=== PATIENT | male | born 1955 | race Caucasian/White ===

== ENCOUNTER 2024-09-09 15:02 | Outpatient (CLI) | payer MEDICARE, SELFPAY ==
[2024-09-09 18:58] LABS: Basophils Absolute Auto 0.1 K/mm3 (0.0-0.1); Basophils Percent Auto 0.6 % (0.2-1.2); Eosinophils Absolute Auto 0.2 K/mm3 (0-0.3); Eosinophils Percent Auto 1.9 % (0-4.4); Hematocrit 43.5 % (42.0-52.0); Hemoglobin 14.1 g/dL (14.0-18.0); Immature Granulocyte Absolute 0.04 K/mm3 (0.00-0.031); Immature Granulocyte Percent A 0.4 % (0-0.5); Lymphocytes Percent Auto 21.3 % (18.3-44.2); Mean Corpuscular HGB Conc 32.4 g/dl (32-36); Mean Corpuscular Volume 92.6 fl (80-100); Mean Platelet Volume 11.6 fl (7.4-10.4); Monocytes Absolute Auto 0.9 K/mm3 (0.1-0.6); Monocytes Percent Auto 8.8 % (2.6-8.5); Neutrophils Absolute Auto 6.6 K/mm3 (1.3-6.7); Platelet Count Result 212 k/mm3 (150-375); Red Cell Distribution Width 12.4 % (11.5-14.5); White Blood Count 9.8 K/mm3 (4.5-10.0)
[2024-09-09 19:43] LABS: Alanine Aminotransferase 43 U/L (6-50); Albumin Level 4.4 g/dL (3.5-5.1); Alkaline Phosphatase 92 U/L (38-126); Anion Gap 10 mmol/L (4-12); Aspartate Amino Transferase 52 U/L (17-59); Bilirubin,Total 0.6 mg/dL (0.2-1.3); Blood Urea Nitrogen 27 mg/dL (9-20); Calcium 9.3 mg/dL (8.4-10.2); Carbon Dioxide 27 mmol/L (22-30); Chloride 101 mmol/L (98-107); Cholesterol 121 mg/dL (0-200); Estimated Glomerular Filt Rate 47; Glucose 106 mg/dL (65-110); HDL Direct 40 mg/dL; Potassium 4.5 mmol/L (3.4-5.0); Sodium 138 mmol/L (137-145); Triglycerides 63 mg/dL (<150)
[2024-09-09 19:54] LABS: LDL Cholesterol Direct 53 mg/dL
[2024-09-09 20:16] LABS: Prostate Specific Antigen 0.4 ng/mL (< OR = 4.0)
[2024-09-09 20:20] LABS: Hemoglobin A1C 6.3 % (<5.7)
== END 2024-09-09 15:03 | disposition home or self-care (01) ==
LOC: ANHGOSHLAB 15:03
PROVIDERS: PCP Clinical Nurse Specialist; Visit Provider Clinical Nurse Specialist
DX: Z12.5 Encounter for screening for malignant neoplasm of prostate (principal); E78.5 Hyperlipidemia, unspecified; I10 Essential (primary) hypertension; I25.10 Atherosclerotic heart disease of native coronary artery without angina pectoris; R73.01 Impaired fasting glucose
CPT/HCPCS: 36415; 80053; 80061; 83036; 84153; 84443; 85025; G0103

== ENCOUNTER 2024-10-07 09:04 | Outpatient (CLI) | payer MEDICARE, SELFPAY ==
[2024-10-07 20:14] LABS: Anion Gap 9 mmol/L (4-12); Blood Urea Nitrogen 22 mg/dL (9-20); Calcium 9.2 mg/dL (8.4-10.2); Carbon Dioxide 29 mmol/L (22-30); Chloride 101 mmol/L (98-107); Estimated Glomerular Filt Rate 55; Glucose 97 mg/dL (65-110); Potassium 4.2 mmol/L (3.4-5.0); Sodium 139 mmol/L (137-145)
== END 2024-10-07 09:05 | disposition home or self-care (01) ==
PROVIDERS: PCP Clinical Nurse Specialist; Visit Provider Clinical Nurse Specialist
DX: R94.4 Abnormal results of kidney function studies (principal)
CPT/HCPCS: 36415; 80048

== ENCOUNTER 2024-12-29 09:14 | Outpatient (CLI) | payer MEDICARE, SELFPAY ==
--- OUTSIDE RECORDS SUMMARY | 2024-12-29 09:32 | XMS_ITS | Patient Health Record ---
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 Name Role Phone SLICK SINGH DO Primary Care Provider Shira GrahamObed josue Unavailable [phone] Allergies No Known Allergies Results Component Value Reference Range Flag Notes Echo Complete [id number] Reviewed date:09/16/2024 04:02:09 PM Interpretation: Performing Lab: Notes/Report: Echo Complete EC-[id number] (Not yet reviewed by provider) Interpretation: Performing Lab: Notes/Report: [id number] Echo Complete [id number] (Not yet reviewed by provider) Interpretation: Performing Lab: Notes/Report: Cardiopulmonary Services Name: ADALID BARRETO Study Date: 10/19/2024 : 1955 Patient Location: [facility] Age: 69 yrs Gender: Male Height: 71 in Weight: 200 lb HR: 69 BSA: 2.1 m2 Reason For Study: CAD<Cardiomyopathy Interpretation Summary There is mild concentric left ventricular hypertrophy. Left Ventricular Function is estimated to be 40-45%. There is moderate mitral regurgitation. There is mild tricuspid regurgitation. Mild aortic regurgitation. Recommendations Continue present medication. Will continue to follow regularly. Left Ventricle The left ventricle is normal in size. There is mild concentric left ventricular hypertrophy. Left Ventricular Function is estimated to be 40-45%. Right Ventricle The right ventricle is grossly normal size. Atria The left atrial size is normal. Right atrial size is normal. Great Vessels The aortic root is normal size. Mildly dilated ascending aorta. Pericardium/Pleural There is no pericardial effusion. There is no pleural effusion. Mitral Valve There is moderate mitral regurgitation. Aortic Valve Mild aortic regurgitation. Tricuspid Valve There is mild tricuspid regurgitation. Pulmonic Valve Mild pulmonic valvular regurgitation. MMode/2D Measurements & Calculations IVSd: 1.2 cm LVIDd: 4.7 cm FS: 27.8 % LVIDs: 3.4 cm EDV(Teich): 101.7 ml LVPWd: 1.3 cm ESV(Teich): 46.9 ml EF(Teich): 53.9 % EPSS: 1.1 cm Ao root diam: 3.7 cm asc Aorta Diam: 3.9 cm Ao root area: 10.8 cm2 ACS: 1.7 cm LA dimension: 3.3 cm LVOT diam: 2.1 cm LVOT area: 3.5 cm2 Time Measurements Aortic HR: 69.6 BPM MM HR: 69.4 BPM Pulm. R-R: 0.94 sec Pulm. HR: 63.5 BPM Doppler Measurements & Calculations MV E max louis: 86.7 cm/sec MV V2 max: 102.2 cm/sec MV dec slope: MV A max louis: MV max P.2 mmHg 484.1 cm/sec2 109.6 cm/sec MV V2 mean: 67.6 cm/sec MV dec time: 0.18 sec MV E/A: 0.79 MV mean P.0 mmHg MV V2 VTI: 25.3 cm MVA(VTI): 2.8 cm2 Ao V2 max: 145.7 cm/sec AI max louis: 390.3 cm/sec LV V1 max P.5 mmHg Ao max P.5 mmHg AI max P.9 mmHg LV V1 mean P.1 mmHg Ao V2 mean: 93.9 cm/sec AI dec slope: LV V1 max: 94.2 cm/sec Ao mean P.2 mmHg 240.2 cm/sec2 LV V1 mean: 68.5 cm/sec Ao V2 VTI: 24.4 cm AI P1/2t: 475.8 msec LV V1 VTI: 19.9 cm JARED(I,D): 2.9 cm2 JARED(V,D): 2.3 cm2 MR max louis: 450.0 cm/sec CO(LVOT): 4.8 l/min PA V2 max: 101.9 cm/sec MR max P.0 mmHg SV(LVOT): 69.5 ml PA max P.2 mmHg PA V2 mean: 71.4 cm/sec PA mean P.3 mmHg PA V2 VTI: 24.0 cm PI end-d louis: TR max louis: 197.2 cm/sec RAP systole: 10.0 mmHg 112.9 cm/sec TR max P.6 mmHg RVSP(TR): 25.6 mmHg Ordering Physician: Obed Rodgers Referring Physician: Obed Rodgers Performed By: Lucia Leblanc Prothrombin Time 70859 (Not yet reviewed by provider) Interpretation: Performing Lab: Notes/Report: ProTime 11.5 9.1-11.9 SEC Normal Range : 9.1-11.9 INR 1.09 .90-1.20 Therapeutic Range: 2.0-3.0 Therapaeutic Range for heart valve replacement: 2.5-3.50 Comprehensive Metabolic Pane l (CMP) 54563 (Not yet reviewed by provider) Interpretation: Performing Lab: Notes/Report: Glucose Serum 158 71-110 MG/DL HI Testing p erformed at [facility], [address] [place] [address] [place] [address]. CLIA ID#: [id number] BUN 22 7-21 MG/DL HI Creat 1.28 .57-1.17 MG/DL HI P-ametha-w-benzoquinon e imine (NAPQI) is a metabolite of acetaminophen, NAPQI concentrations of apparoximately 10 mg/L correlation to toxic levels of acetaminophen demonstrates a greater than or equil to 10% change in results. NAPQI concentrations greater than this may lead to falsely depressed results for patient samples. Use of this assay is not recommended for patients undergoing treatment with phenindione, due to the potential for falsely depressed results. GFR 61.5 NA Calculation pe rformed from GFR calculator provided by the National Kid[employer]. Glomerular Filtration rate(GRF) is the best overall index of kidney function. Normal GFR varies according to age,sex, body size, and declines with age. The National Kidney Foundation recommends using the CKD-EPI Creatinine Equation(2020) to estimate GFR. BUN/Creat Ratio 17.2 12.0-20.0 % Total Protein 7.4 5.8-8.0 G/DL Albumin 4.4 3.2-4.8 G/DL Globulin 3.0 2.3-3.5 G/DL Alb/Glob 1.5 0.8-2.2 Calcium 9.5 8.7-10.4 MG/DL Sodium 140 136-145 MMOL/L Potassium 3.9 3.5-5.1 MMOL/L Chloride 104 98-107 MMOL/L CO2 27.8 20.0-31.0 MMOL/L Anion Gap 12 5-15 Alk Phos 91 46-116 Bili Total .4 .3-1.2 MG/DL Use of this assay is not recommended for patients undergoing treatment with eltrombopag due to the potential for falsely elevated results. AST/SGOT 23 15-37 UNIT/L ALT/SGPT 17 12-78 UNIT/L Osmo Serum,Calculated 297 280-300 MOSM/KG Partial Thromboplastin Time 39124 (Not yet reviewed by provider) Interpretation: Performing Lab: Notes/Report: PTT 23.6 22.6-31.8 SEC Therapeutic Range: 60-100. Critical Value Starting at > 100. Troponin-I 30582 (Not yet re viewed by provider) Interpretation: Performing Lab: Notes/Report: Troponin-I 316 2-54 pg/mL CRIT Results called to floor CATH, to Russ Trejo RN, @ 08/11/2024 17:23 RBV/CS CBC Reflex Man Diff 32369, 8 5007 (Not yet reviewed by provider) Interpretation: Performing Lab: Notes/Report: WBC 14.2 4.5-11.0 X10'3 HI RBC 4.63 4.50-5.90 X10'6 Hgb 14.2 13.5-17.5 G/DL Hct 42.4 41.0-53.0 % MCV 91.6 80.0-100.0 FL MCH 30.7 27.0-31.0 PG MCHC 33.5 31.0-37.0 G/DL Platelet 250 150-400 X10'3 RDW-SD 42.3 35.0-49.0 FL RDW-CV 12.7 12.2-15.6 % MPV 11.0 9.2-12.0 FL Review Auto Diff Conf Glucometer WBG--46693 (Not y et reviewed by provider) Interpretation: Performing Lab: Notes/Report: Glucometer WBG 134 65-110 MG/DL HI Notify D r~Meter: [id number]~Funeral Director/Embalmer: [id number] TITI COBB WBC Auto Diff--49228 (Not ye t reviewed by provider) Interpretation: Performing Lab: Notes/Report: Added by Discern Rules Neutro Auto% 80.5 40.0-70.0 % HI Lymph Auto% 13.1 22.0-44.0 % LOW Cloud Auto% 4.9 3.0-7.0 % Eos Auto% .3 2.0-4.0 % LOW Baso Auto% 0.6 0.0-1.0 % NRBC% .00 .00-.20 /100 intact WBC's Neutro Abs 11.44 .80-7.70 HI Absolute Neutrophil Count 46196 NA Lymph Abs 1.86 .10-4.10 Cloud Abs .69 .20-1.00 Eos Abs .04 .00-.40 Baso Abs .08 .00-.20 NRBC# .00 .00-.20 Imm Gran Abs .08 .00-.10 Imm Gran% .6 .0-.4 % HI Basic Metabolic Panel (BMP) 13047 (Not yet reviewed by provider) Interpretation: Performing Lab: Notes/Report: Sodium 136 136-145 MMOL/L Potassium 4.8 3.5-5.1 MMOL/L Chloride 104 98-107 MMOL/L CO2 26.0 20.0-31.0 MMOL/L Glucose Serum 169 71-110 MG/DL HI Testing p erformed at [facility], [address] [place] [address] [place] [address]. CLIA ID#: [id number] BUN 20 7-21 MG/DL Creat 1.12 .57-1.17 MG/DL O-qgaztw-o-benzoquinon e imine (NAPQI) is a metabolite of acetaminophen, NAPQI concentrations of apparoximately 10 mg/L correlation to toxic levels of acetaminophen demonstrates a greater than or equil to 10% change in results. NAPQI concentrations greater than this may lead to falsely depressed results for patient samples. Use of this assay is not recommended for patients undergoing treatment with phenindione, due to the potential for falsely depressed results. GFR 71.7 NA Calculation pe rformed from GFR calculator provided by the National Kidney Foundation. Glomerular Filtration rate(GRF) is the best overall index of kidney function. Normal GFR varies according to age,sex, body size, and declines with age. The National Kidney Foundation recommends using the CKD-EPI Creatinine Equation(202) to estimate GFR. Anion Gap 11 5-15 BUN/Creat Ratio 17.9 12.0-20.0 % Calcium 8.8 8.7-10.4 MG/DL Osmo Serum,Calculated 288 280-300 MOSM/KG Lipid Panel Reflex DLDL 8006 1, 93165 (Not yet reviewed by provider) Interpretation: Performing Lab: Notes/Report: Trig 123 NA Classification Guidelines:Triglyceride s Adults: >20yrs Desirable <150 Borderline High 150-199 High 200-499 Very high >=500 Children: Male 0-4 yr 22-99 5-9 yr 30-101 10-14 yr 32-125 15-19 yr 37-148 Children: Female 0-4 yr 34-112 5-9 yr 32-105 10-14 yr 37-131 15-19 yr 39-132 Chol 165 <=200 MG/DL HDL 46 30-72 MG/DL Reference Ranges:HDL Male: 5-9y 38-75 10-14y 37-74 15-19y 30-63 >=20y 40-59 Female: 5-9y 36-73 10-14y 37-70 15-19y 35-74 >=20y 40-59 CH/HDL 3.6 0.0-4.9 RATIO LDL 94 0-130 MG/DL LDL result is inaccurate , if Trig is >400 mg/dl. See DLDL result. Chest 1V (Not yet reviewed b y provider) Interpretation: Performing Lab: Notes/Report: See Below For Report Chest 1V Read See Below For Report zzzHeart Cath Lt poss PTCA ( Not yet reviewed by provider) Interpretation: Performing Lab: Notes/Report: [email or web address]=[id number]=iSite Schedule Confirmation (Not y et reviewed by provider) Interpretation: Performing Lab: Notes/Report: Heart Cath Lt poss PTCA Troponin-I 03976 (Not yet re viewed by provider) Interpretation: Performing Lab: Notes/Report: Troponin-I >491694 2-54 pg/mL CRIT CALLED TO Netta COPE RN @ [facility]. 08/11/2024 21:08:28 , RBV - ROYAL. Schedule Confirmation (Not y et reviewed by provider) Interpretation: Performing Lab: Notes/Report: Heart Cath Lt poss PTCA zzzHeart Cath Lt poss PTCA ( Not yet reviewed by provider) Interpretation: Performing Lab: Notes/Report: See Below For Report This report was dictated outside of the [employer] system. Read See Below For Report Troponin-I 32051 (Not yet re viewed by provider) Interpretation: Performing Lab: Notes/Report: Troponin-I >042654 2-54 pg/mL CRIT CALLED TO Tatum HUANG RN @ [facility]. 08/12/2024 03:35:41 , RBV - SRAY. CBC Reflex Man Diff 72754, 8 5007 (Not yet reviewed by provider) Interpretation: Performing Lab: Notes/Report: WBC 12.8 4.5-11.0 X10'3 HI RBC 4.65 4.50-5.90 X10'6 Hgb 14.2 13.5-17.5 G/DL Hct 42.5 41.0-53.0 % MCV 91.4 80.0-100.0 FL MCH 30.5 27.0-31.0 PG MCHC 33.4 31.0-37.0 G/DL Platelet 230 150-400 X10'3 RDW-SD 43.3 35.0-49.0 FL RDW-CV 13.1 12.2-15.6 % MPV 11.3 9.2-12.0 FL Review Auto Diff Conf Echo Complete EC-[id number] (Not yet reviewed by provider) Interpretation: Performing Lab: Notes/Report: [id number] CBC w\o Diff 21287 Reviewed date:08/22/2024 09:12:21 AM Interpretation: Performing Lab: Notes/Report: WBC 16.2 4.5-11.0 X10'3 HI RBC 4.75 4.50-5.90 X10'6 Hgb 14.2 13.5-17.5 G/DL Hct 44.2 41.0-53.0 % MCV 93.1 80.0-100.0 FL MCH 29.9 27.0-31.0 PG MCHC 32.1 31.0-37.0 G/DL Platelet 214 150-400 X10'3 RDW-SD 44.8 35.0-49.0 FL RDW-CV 13.2 12.2-15.6 % MPV 11.7 9.2-12.0 FL Basic Metabolic Panel (BMP) 62137 Reviewed date:08/22/2024 09:12:21 AM Interpretation: Performing Lab: Notes/Report: Sodium 137 136-145 MMOL/L Potassium 4.1 3.5-5.1 MMOL/L Chloride 101 98-107 MMOL/L CO2 27.4 20.0-31.0 MMOL/L Glucose Serum 130 71-110 MG/DL HI Testing p erformed at [facility], [address] [place] [address] [place] [address]. CLIA ID#: [id number] BUN 21 7-21 MG/DL Creat 1.09 .57-1.17 MG/DL O-hzzppe-l-benzoquinon e imine (NAPQI) is a metabolite of acetaminophen, NAPQI concentrations of apparoximately 10 mg/L correlation to toxic levels of acetaminophen demonstrates a greater than or equil to 10% change in results. NAPQI concentrations greater than this may lead to falsely depressed results for patient samples. Use of this assay is not recommended for patients undergoing treatment with phenindione, due to the potential for falsely depressed results. GFR 74.5 NA Calculation pe rformed from GFR calculator provided by the National Kidney Foundation. Glomerular Filtration rate(GRF) is the best overall index of kidney function. Normal GFR varies according to age,sex, body size, and declines with age. The National Kidney Foundation recommends using the CKD-EPI Creatinine Equation(2020) to estimate GFR. Anion Gap 13 5-15 BUN/Creat Ratio 19.3 12.0-20.0 % Calcium 9.4 8.7-10.4 MG/DL Osmo Serum,Calculated 289 280-300 MOSM/KG Basic Metabolic Panel (BMP) 80644 Reviewed date:08/22/2024 09:12:26 AM Interpretation: Performing Lab: Notes/Report: Sodium 137 136-145 MMOL/L Potassium 3.6 3.5-5.1 MMOL/L Chloride 104 98-107 MMOL/L CO2 27.4 20.0-31.0 MMOL/L Glucose Serum 105 71-110 MG/DL Testing p erformed at [facility], [address] [place] [address] [place] [address]. CLIA ID#: [id number] BUN 21 7-21 MG/DL Creat 1.09 .57-1.17 MG/DL I-zunczv-e-benzoquinon e imine (NAPQI) is a metabolite of acetaminophen, NAPQI concentrations of apparoximately 10 mg/L correlation to toxic levels of acetaminophen demonstrates a greater than or equil to 10% change in results. NAPQI concentrations greater than this may lead to falsely depressed results for patient samples. Use of this assay is not recommended for patients undergoing treatment with phenindione, due to the potential for falsely depressed results. GFR 74.2 NA Calculation pe rformed from GFR calculator provided by the National Kidney Foundation. Glomerular Filtration rate(GRF) is the best overall index of kidney function. Normal GFR varies according to age,sex, body size, and declines with age. The National Kidney Foundation recommends using the CKD-EPI Creatinine Equation(2020) to estimate GFR. Anion Gap 9 5-15 BUN/Creat Ratio 19.3 12.0-20.0 % Calcium 9.5 8.7-10.4 MG/DL Osmo Serum,Calculated 287 280-300 MOSM/KG Echo Complete EC-[id number] (Not yet reviewed by provider) Interpretation: Performing Lab: Notes/Report: Cardiopulmonary Services Name: ADALID BARRETO Study Date: 08/12/2024 : 1955 Patient Location: [facility] Age: 69 yrs Gender: Male Height: 71 in Weight: 200 lb BP: 152/105 mmHg BSA: 2.1 m2 Reason For Study: acute DE Interpretation Summary Left Ventricular Function is estimated to be 30-35%. There are regional wall motion abnormalities as specified. The left atrium is mildly dilated. There is moderate mitral regurgitation. There is mild tricuspid regurgitation. Mild aortic regurgitation. Mild pulmonic valvular regurgitation. Moderate ischemic cardiomyopathy. The left ventricle is borderline dilated. Left Ventricle The left ventricle is borderline dilated. Left Ventricular Function is estimated to be 30-35%. Moderate ischemic cardiomyopathy. There are regional wall motion abnormalities as specified. There is hypokinesis of the apical wall. There is hypokensis of the anterior wall. Right Ventricle The right ventricle is normal size. Atria The left atrium is mildly dilated. The right atrium is mildly dilated. Great Vessels The aortic root is normal size. Mitral Valve There is moderate mitral regurgitation. Aortic Valve Mild aortic regurgitation. Tricuspid Valve There is mild tricuspid regurgitation. Pulmonic Valve Mild pulmonic valvular regurgitation. MMode/2D Measurements & Calculations IVSd: 2.4 cm LVIDd: 4.3 cm FS: 35.7 % LVIDs: 2.8 cm EDV(Teich): 82.9 ml LVPWd: 1.4 cm ESV(Teich): 28.6 ml EF(Teich): 65.5 % Ao root diam: 4.1 cm asc Aorta Diam: 3.5 cm LVOT diam: 2.3 cm Ao root area: 13.1 cm2 LVOT area: 4.3 cm2 ACS: 2.1 cm LA dimension: 3.3 cm LVLd ap4: 7.4 cm SV(MOD-sp4): 25.6 ml RA A4Cs_phl: 17.3 cm2 EDV(MOD-sp4): 68.9 ml LVLs ap4: 7.0 cm ESV(MOD-sp4): 43.3 ml EF(MOD-sp4): 37.2 % Doppler Measurements & Calculations MV E max louis: 92.2 cm/sec MV V2 max: 119.8 cm/sec MV dec slope: 1007 cm/sec2 MV A max louis: 87.7 cm/sec MV max P.7 mmHg MV dec time: 0.09 sec MV E/A: 1.1 MV V2 mean: 70.8 cm/sec MV mean P.4 mmHg MV V2 VTI: 24.7 cm MVA(VTI): 2.6 cm2 Ao V2 max: 147.8 cm/sec LV V1 max P.2 mmHg SV(LVOT): 65.2 ml Ao max P.7 mmHg LV V1 mean P.5 mmHg Ao V2 mean: 92.6 cm/sec LV V1 max: 73.5 cm/sec Ao mean P.1 mmHg LV V1 mean: 58.7 cm/sec Ao V2 VTI: 32.9 cm LV V1 VTI: 15.1 cm JARED(I,D): 2.0 cm2 JARED(V,D): 2.1 cm2 TV V2 max: 54.1 cm/sec PA V2 max: 89.8 cm/sec AV VR_phl: 0.50 TV max P.2 mmHg PA max P.3 mmHg JARED(VTI)/BSA_phl: 0.99 MV P1/2t-pr_phl: 26.8 msec Ordering Physician: Obed Rodgers Referring Physician: Obed Rodgers Performed By: Carie Robbins WBC Auto Diff--50813 (Not ye t reviewed by provider) Interpretation: Performing Lab: Notes/Report: Added by Discern Rules Neutro Auto% 82.0 40.0-70.0 % HI Lymph Auto% 10.2 22.0-44.0 % LOW Cloud Auto% 6.9 3.0-7.0 % Eos Auto% .1 2.0-4.0 % LOW Baso Auto% 0.3 0.0-1.0 % NRBC% .00 .00-.20 /100 intact WBC's Neutro Abs 10.52 .80-7.70 HI Absolute Neutrophil Count 73098 NA Lymph Abs 1.31 .10-4.10 Cloud Abs .88 .20-1.00 Eos Abs .01 .00-.40 Baso Abs .04 .00-.20 NRBC# .00 .00-.20 Imm Gran Abs .07 .00-.10 Imm Gran% .5 .0-.4 % HI Reason For Referral No Information Medications Medication SIG (Take, Route, Frequency, Duration) Notes Start Date End Date Status Atorvastatin Calcium 40 MG Tablet 1 tablet Orally Once a day; Duration: 90 days Active Brilinta 90 MG Tablet 1 tablet Orally Twice a day; Duration: 30 days please dispense generic Active Aspirin 81 MG Tablet Delayed Release 1 tablet Orally Once a day Active Ticagrelor 90 MG Tablet 1 tablet Orally Twice a day; Duration: 30 days 12/07/2024 Active Lasix 20 MG Tablet 1 tablet EVERY OTHER DAY Orally Once a day; Duration: 30 days Active Carvedilol 6.25 MG Tablet 1/2 tablet with food Orally Twice a day; Duration: 30 days Active Farxiga 10 MG Tablet 1 tablet Orally Once a day; Duration: 30 days Active Entresto 24-26 MG Tablet 1/2 tablet Orally Twice a day; Duration: 30 days Active Social History Tobacco Use: Social History Observation Description Date Details (start date - stop date) Never Smoker NA - NA Social History Drugs/Alcohol: Social Info Question Answer Notes Drugs Have you used drugs other than those for medical reasons in the past 12 months? No Caffeine Intake: 2-3 cups per day Tobacco Use: Social Info Question Answer Notes Tobacco Control (Standard) Tobacco use: Nonsmoker Additional Details Category Social Info Options Details Drugs/Alcohol: Do you smoke marijuana? De nies Do you drink alcohol? Yes Section Notes: Denies tobacco products Admits alcohol - 4-6 beers weekly Admits caffeine - 2-3 coffees daily Denies tobacco products Admits alcohol - 4-6 beers weekly Admits caffeine - 2-3 coffees daily Denies tobacco products Admits alcohol - 4-6 beers weekly Admits caffeine - 2-3 coffees daily Denies tobacco products Admits alcohol - 4-6 beers weekly Admits caffeine - 2-3 coffees daily Problems Problem Type SNOMED Code ICD Code Onset Dates Problem Status W/U Status Risk Notes Problem Acute ST segment elevation myocardial infarction involving left anterior descending coronary artery (773296556668757) ST elevation (STEMI) myocardial infarction involving left anterior descending coronary artery (I21.02) Active confirmed Problem Ischemic cardiomyopathy (790962980) Ischemic cardiomyopathy (I25.5) Active confirmed Problem Atherosclerotic heart disease of habematolel coronary artery without angina pectoris (728972112379740) Coronary artery disease involving habematolel coronary artery of habematolel heart without angina pectoris (I25.10) Active confirmed Problem Hypertension (20012444) HTN (hypertension) (I10) Active confirmed Problem History of placement of stent for coronary artery disease (situation) (008564133) S/P coronary artery stent placement (Z95.5) Active confirmed Problem Long-term current use of drug therapy (371000934) Antiplatelet or antithrombotic long-term use (Z79.02) Active confirmed Problem Atherosclerotic heart disease of habematolel coronary artery without angina pectoris (641956593118058) Arteriosclerosis of coronary artery (I25.10) Active confirmed Problem Dyslipidemia (952589760) Dyslipidemia (E78.5) Active confirmed Problem Heart failure with reduced ejection fraction (064177070) Heart failure with reduced ejection fraction (I50.20) Active confirmed Problem Acute ST segment elevation myocardial infarction involving left anterior descending coronary artery (disorder) (166766083818295) Acute ST elevation myocardial infarction (STEMI) involving left anterior descending (LAD) coronary artery (I21.02) Active confirmed Problem Acute myocardial infarction of anterior wall (disorder) (05493677) Anterior myocardial infarction (I21.09) Active confirmed Vital Signs Heart Rate 73 /min 11/24/2024 Respiratory Rate 16 /min 08/19/2024 Height-cm 180.34 cm 11/24/2024 Oximetry 95 % 11/24/2024 Blood pressure diastolic 68 mm Hg 11/24/2024 Weight-kg 85.73 kg 11/24/2024 Height 71 in 11/24/2024 Blood pressure systolic 108 mm Hg 11/24/2024 Weight 189.0 lbs 11/24/2024 BMI 26.36 kg/m2 11/24/2024 Encounters Encounter Location Date Provider Diagnosis [facility] [address] [place] [address] [place] [address] 10/19/2024 Obed [facility] [address] [place] [address], [place] [address] 11/24/2024 Obed Rodgers CAD in habematolel artery I25.10 ; Anterior wall myocardial infarction I21.09 and Ischemic cardiomyopathy I25.5 [facility] [address] [place] [address], [place] [address] 10/20/2024 Obed Rodgers Cardiomyopathy, ischemic I25.5 and CAD in habematolel artery I25.10 [facility] [address] [place] [address], [place] [address] 09/14/2024 Obed Vishal Anterior myocardial infarction I21.09 [facility] [address] [place] [address], [place] [address] 08/19/2024 Obed Rodgers Coronary artery disease involving habematolel coronary artery of habematolel heart without angina pectoris I25.10 ; History of acute anterior wall DE I25.2 and Ischemic cardiomyopathy I25.5 [facility] [address] [place] [address], [place] [address] 09/08/2024 Obed [facility] [address] [place] [address], [place] [address] 12/06/2024 Obed [facility] [address] [place] [address], [place] [address] 11/03/2024 Obed [facility] [address] [place] [address], [place] [address] 11/01/2024 Obed [facility] [address] [place] [address], [place] [address] 10/26/2024 Obed [facility] [address] [place] [address], [place] [address] 09/29/2024 Obed [facility] [address] [place] [address], [place] [address] 09/09/2024 Obed [facility] [address] [place] [address], [place] [address] 09/09/2024 [facility] [address] [place] [address], [place] [address] 09/08/2024 Obed Rodgers Assessments Encounter Date Diagnosis (ICD Code) Assessment Notes Treatment Notes Treatment Clinical Notes Section Notes 08/19/2024 Coronary artery disease involving habematolel coronary artery of habematolel heart without angina pectoris (ICD-10 - I25.10) Impression: #1 acute anterior DE: He presented this past week with acute anterior wall DE. His pain started about 2 to 3 hours before presentation. Underwent stenting to the LAD. Somewhat concerned his symptoms may have been going on a lot longer. He seemed a much further into his DE then his presentation. Today's EKG shows septal Q waves with biphasic T waves. He has had no further pain since his procedure. #2 ischemic cardiomyopathy: His ejection fraction by echo was around 30 to 35%. Placed on Entresto, Farxiga, carvedilol. Has little bit of a cough this may be more passive congestion. I do not think it is the Entresto. He does have some fatigue but energy level slowly improving. No real signs of failure. Plan: Reassess in clinic in 2 to 3 weeks to make sure his cough has resolved Repeat echo in 8 to 10 weeks to see if ejection fraction is normalizing on medical therapy 08/19/2024 History of acute anterior wall DE (ICD-10 - I25.2) Impression: #1 acute anterior DE: He presented this past week with acute anterior wall DE. His pain started about 2 to 3 hours before presentation. Underwent stenting to the LAD. Somewhat concerned his symptoms may have been going on a lot longer. He seemed a much further into his DE then his presentation. Today's EKG shows septal Q waves with biphasic T waves. He has had no further pain since his procedure. #2 ischemic cardiomyopathy: His ejection fraction by echo was around 30 to 35%. Placed on Entresto, Farxiga, carvedilol. Has little bit of a cough this may be more passive congestion. I do not think it is the Entresto. He does have some fatigue but energy level slowly improving. No real signs of failure. Plan: Reassess in clinic in 2 to 3 weeks to make sure his cough has resolved Repeat echo in 8 to 10 weeks to see if ejection fraction is normalizing on medical therapy 09/14/2024 Anterior myocardial infarction (ICD-10 - I21.09) Impression: #1 CAD: He recent presented with acute anterior wall myocardial infarction. Underwent stenting to the LAD. SYMPTOMS of angina have since resolved. Exercise capacity is improving. Is walking on a daily basis with no limitations. Blood pressure and heart rate seem to be controlled. No dizziness or near syncope. No shortness of breath with activity. Placed him on Entresto and Farxiga for his reduced ejection fraction. He appears well compensated. I do not think he is in failure. Plan: He is return to clinic in 5 weeks for limited echo to assess ejection fraction to see if it normalized after medical therapy. I will see him in clinic on the same day. 10/20/2024 CAD in habematolel artery (ICD-10 - I25.10) Impression: #1 coronary disease: Presented several weeks ago with an acute anterior wall DE. Underwent successful stenting to the LAD D. No recurrent chest pain since his intervention. Remains on Brilinta. #2 ischemic cardiomyopathy: His ejection fraction was 30% at the time of his cardiac catheterization acute DE. Placed him on Entresto as well as Coreg. His recent repeat echo confirms ejection fraction improved to 45%. No further anterior wall hypokinesis. Still plus symptoms of postnasal drip. Has a lot of issues with drainage. He states it all started once he began all these medications after his DE. Uncertain if this is secondary to the Coreg or Entresto. This would be unusual. Plan: Decrease Entresto and Coreg by half to see if this improves his symptoms of postnasal drip Continue Brilinta Reassess in 1 month 10/20/2024 Cardiomyopathy, ischemic (ICD-10 - I25.5) Impression: #1 coronary disease: Presented several weeks ago with an acute anterior wall DE. Underwent successful stenting to the LAD D. No recurrent chest pain since his intervention. Remains on Brilinta. #2 ischemic cardiomyopathy: His ejection fraction was 30% at the time of his cardiac catheterization acute DE. Placed him on Entresto as well as Coreg. His recent repeat echo confirms ejection fraction improved to 45%. No further anterior wall hypokinesis. Still plus symptoms of postnasal drip. Has a lot of issues with drainage. He states it all started once he began all these medications after his DE. Uncertain if this is secondary to the Coreg or Entresto. This would be unusual. Plan: Decrease Entresto and Coreg by half to see if this improves his symptoms of postnasal drip Continue Brilinta Reassess in 1 month 11/24/2024 CAD in habematolel artery (ICD-10 - I25.10) Impression: #1 coronary disease: Present with acute anterior wall DE about 3 months ago. Underwent stenting to the LAD. Initial ejection fraction was around 30%. Placed on appropriate medications. Today in the office he is doing well. Exercise capacity is improved. Not having much in the way of shortness of breath or fatigue. #2 ischemic cardiomyopathy: Ejection fraction was 30% at the time of his cardiac catheterization. He was placed on Entresto and Coreg. Repeat echo 3 to 4 weeks ago showed improvement of ejection fraction 45%. Again as stated above he appears well compensated. Plan: Decrease Lasix to every other day since his ejection fraction is improved and no peripheral edema Return to clinic in 2 months 11/24/2024 Anterior wall myocardial infarction (ICD-10 - I21.09) Impression: #1 coronary disease: Present with acute anterior wall DE about 3 months ago. Underwent stenting to the LAD. Initial ejection fraction was around 30%. Placed on appropriate medications. Today in the office he is doing well. Exercise capacity is improved. Not having much in the way of shortness of breath or fatigue. #2 ischemic cardiomyopathy: Ejection fraction was 30% at the time of his cardiac catheterization. He was placed on Entresto and Coreg. Repeat echo 3 to 4 weeks ago showed improvement of ejection fraction 45%. Again as stated above he appears well compensated. Plan: Decrease Lasix to every other day since his ejection fraction is improved and no peripheral edema Return to clinic in 2 months 08/19/2024 Ischemic cardiomyopathy (ICD-10 - I25.5) Impression: #1 acute anterior DE: He presented this past week with acute anterior wall DE. His pain started about 2 to 3 hours before presentation. Underwent stenting to the LAD. Somewhat concerned his symptoms may have been going on a lot longer. He seemed a much further into his DE then his presentation. Today's EKG shows septal Q waves with biphasic T waves. He has had no further pain since his procedure. #2 ischemic cardiomyopathy: His ejection fraction by echo was around 30 to 35%. Placed on Entresto, Farxiga, carvedilol. Has little bit of a cough this may be more passive congestion. I do not think it is the Entresto. He does have some fatigue but energy level slowly improving. No real signs of failure. Plan: Reassess in clinic in 2 to 3 weeks to make sure his cough has resolved Repeat echo in 8 to 10 weeks to see if ejection fraction is normalizing on medical therapy 11/24/2024 Ischemic cardiomyopathy (ICD-10 - I25.5) Impression: #1 coronary disease: Present with acute anterior wall DE about 3 months ago. Underwent stenting to the LAD. Initial ejection fraction was around 30%. Placed on appropriate medications. Today in the office he is doing well. Exercise capacity is improved. Not having much in the way of shortness of breath or fatigue. #2 ischemic cardiomyopathy: Ejection fraction was 30% at the time of his cardiac catheterization. He was placed on Entresto and Coreg. Repeat echo 3 to 4 weeks ago showed improvement of ejection fraction 45%. Again as stated above he appears well compensated. Plan: Decrease Lasix to every other day since his ejection fraction is improved and no peripheral edema Return to clinic in 2 months Plan Of Treatment Pending Test Test Name Order Date Prothrombin Time 66336 08/11/2024 Basic Metabolic Panel (BMP) 55606 2024 Comprehensive Metabolic Panel (CMP) 8005 3 08/11/2024 Lipid Panel Reflex DLDL 53439, 25319 05/2025 Partial Thromboplastin Time 81622 2024 Troponin-I 06361 08/11/2024 Troponin-I 07927 08/12/2024 Troponin-I 28502 08/11/2024 CBC Reflex Man Diff 25572, 46330 025 CBC Reflex Man Diff 59854, 56656 025 Echo Complete [id number] 08/12/2024 Echo Complete [id number] 08/12/2024 Echo Complete EC-19502 10/19/2024 Echo Complete [id number] 10/19/2024 Chest 1V 08/11/2024 Glucometer WBG--27032 08/11/2024 WBC Auto Diff--69165 08/11/2024 WBC Auto Diff--01326 08/12/2024 zzzHeart Cath Lt poss PTCA 08/11/2024 zzzHeart Cath Lt poss PTCA 08/11/2024 Electrocardiogram (EKG) - 84273 08/20/19 Schedule Confirmation 08/11/2024 Schedule Confirmation 08/11/2024 Next Appt Details Provider Name:Obed white, 01/25/2025 10:00:00 AM, [address], [address], Insurance Providers Payer Name Payer Address Payer Phone Subscriber Number Group Number Insured Name Patient Relationship to Insured Coverage Start Date Coverage End Date [place] [address] [place] [phone] [id number] ADALID BARRETO Self - patient is the insured BCBS Supplement [address] [place] [phone] [id number] ADALID BARRETO Self - patient is the insured Medical (General) History Medical History History ICD Code Prostate cancer Melanoma Surgical History Surgery Date(Month/Year) Hand surgery Prostate removal Exploratory laparotomy [facility] by Dr. Rodgers 08.11.2024 skin cancer removal 10/2024 Hospitalization History Reason Date(Month/Year) [facility]: Impression: Successful PTCA and stenting to the LAD Recommendations: Aggrastat infusion for 12 hours to hopefully clean up the thrombus Start low-dose beta-cuca Echo in a.m. to see if ejection fraction improves after revascularization 08.11.2024 - STEMI -
[2024-12-29 20:06] LABS: Anion Gap 9 mmol/L (4-12); Blood Urea Nitrogen 21 mg/dL (9-20); Calcium 9.4 mg/dL (8.4-10.2); Carbon Dioxide 25 mmol/L (22-30); Chloride 101 mmol/L (98-107); Estimated Glomerular Filt Rate > 60; Glucose 83 mg/dL (65-110); Potassium 4.4 mmol/L (3.4-5.0); Sodium 135 mmol/L (137-145)
== END 2024-12-29 09:15 | disposition home or self-care (01) ==
LOC: ANHGOSHLAB 09:15
PROVIDERS: PCP Clinical Nurse Specialist; Visit Provider Clinical Nurse Specialist
DX: R94.4 Abnormal results of kidney function studies (principal)
CPT/HCPCS: 36415; 80048

== ENCOUNTER 2025-03-09 10:09 | Outpatient (CLI) | payer MEDICARE, SELFPAY ==
[2025-03-09 11:10] LABS: Anion Gap 9 mmol/L (4-12); Blood Urea Nitrogen 19 mg/dL (9-20); Calcium 9.5 mg/dL (8.4-10.2); Carbon Dioxide 26 mmol/L (22-30); Chloride 104 mmol/L (98-107); Estimated Glomerular Filt Rate 59; Glucose 108 mg/dL (65-110); Potassium 4.2 mmol/L (3.4-5.0); Sodium 139 mmol/L (137-145)
[2025-03-09 11:39] LABS: MALB Creatinine Ratio 95.8 mg/g (0-30)
[2025-03-09 12:14] LABS: Hemoglobin A1C 6.0 % (<5.7)
== END 2025-03-09 10:10 | disposition home or self-care (01) ==
LOC: ANHGOSHLAB 10:10
PROVIDERS: PCP Clinical Nurse Specialist; Visit Provider Clinical Nurse Specialist
DX: R73.01 Impaired fasting glucose (principal); R94.4 Abnormal results of kidney function studies; I10 Essential (primary) hypertension
CPT/HCPCS: 36415; 80048; 82043; 83036